=== PATIENT | male | born 1970 | race Asian ===

== ENCOUNTER 2016-08-11 09:37 | Emergency (ER) | payer OTHER ==
[2016-08-11] MEDS ORDERED: ACETAMINOPHEN 325 MG TABLET PO STA (10:48)
[2016-08-11] MEDS ORDERED: ACETAMINOPHEN 500 MG TABLET PO ONE (10:50)
== END 2016-08-11 12:27 | disposition home or self-care (01) ==
DX: J06.9 Acute upper respiratory infection, unspecified (principal); B97.89 Other viral agents as the cause of diseases classified elsewhere; L29.9 Pruritus, unspecified; F17.200 Nicotine dependence, unspecified, uncomplicated
CPT/HCPCS: 87275; 87276; 99283; A9270

== ENCOUNTER 2023-01-28 15:45 | Emergency (ER) | payer OTHER ==
--- NOTE | 2023-01-28 16:09 | ED Physician Documentation ---
PD HPI UPPER EXT INJURY - Stated complaint Stated Complaint: R WRIST PX - Chief complaint Chief Complaint: Ext Problem - History obtained from History obtained from: Patient - Additonal information Additional information: He had a fall on December 30 and states he broke his right wrist. He was seen at [facility] and splinted and referred to orthopedics. He cannot work with the splint on and there were some troubles with the orthopedic referral so he remove the splint and has not been seen again. When queried as to the purpose of today's visit, mostly he wants a smaller splint so he can work with it. PD PAST MEDICAL HISTORY - Past Medical History Cardiovascular: None Respiratory: None Endocrine/Autoimmune: None - Past Surgical History Past Surgical History: No - Present Medications Home Medications: Ambulatory Orders Medication Instructions Recorded Confirmed Atorvastatin [Lipitor] 20 mg PO DAILY 01/31/22 01/31/22 Cholecalciferol [Vitamin D3] 1 tab PO DAILY 01/31/22 01/31/22 Meloxicam [Mobic] 7.5 mg PO BID PRN #20 tablet 01/31/22 S[place]ord-3/Dha/Epa/Dpa/Fish Oil 1 cap PO DAILY 01/31/22 01/31/22 [Safford-3 2100 Softgel] Meloxicam [Mobic] 7.5 mg PO BID PRN #20 tablet 01/28/23 - Allergies Allergies/Adverse Reactions: Allergies Allergy/AdvReac Type Severity Reaction Status Date / Time No Known Drug Allergies Allergy Verified 01/28/23 15:57 - Social History Does the pt smoke?: Yes Smoking Status: Current every day smoker Does the pt have substance abuse?: No PD ED PE NORMAL - Vitals Vital signs reviewed: Yes - General General: Alert and oriented X 3, No acute distress - Extremities Extremities: Other (The right wrist is swollen but not deformed. He has limited range of motion but is not tender per se. Normal neurovascular function of the right hand.) - Neuro Neuro: Alert and oriented X 3, Normal speech Results - Vitals Vitals: Vital Signs - 24 hr 01/28/23 15:52 Temperature 36.7 C Heart Rate 78 Respiratory 97 H Rate Blood Pressure 153/90 H O2 Saturation 95 Oxygen O2 Source Room air Procedures - Splint (location) - Minor RUE Splint applied by: Physician Type of splint: Fiberglass, Short arm, Volar cock up Other: Patient tolerated well, No complications, Neurovascular intact PD Medical Decision Making - ED course ED course: 52-year-old gentleman who broke his right wrist about a month ago and here requesting different splints. An x-ray was done and this is clearly a surgical fracture. I discussed the case by phone with our orthopedic physician, Dr. Disla who reviewed the images and feels that given the time course and the fact that its been a month this will be a very complicated surgery and needs to go to a hand specialist. I tried to call the [facility] to expedite a referral for him. They were already closed for the day and had no one integration project manager. Advised him to just go there tomorrow to seek a referral to a hand surgeon. Departure - Departure Disposition: 01 Home, Self Care Clinical Impression: Wrist fracture, right Qualifiers: Encounter type: initial encounter Fracture type: closed Qualified Code(s): S62.101A - Fracture of unspecified carpal bone, right wrist, initial encounter for closed fracture Condition: Good Record reviewed to determine appropriate education?: Yes Instructions: ED Fx Colles Wrist Redu Requ Prescriptions: Meloxicam [Mobic] 7.5 mg PO BID PRN #20 tablet PRN Reason: Pain Comments: As discussed, the wrist fracture is quite bad and will likely need a surgery, because of the timeframe, the injury already being a-month-old, you will likely need to go to a hand specialist to have the surgery done and it will be a more complicated surgery than usual. I would recommend you go to the [facility] tomorrow and be persistent about seeking a referral, as frankly, surgery should already have been several weeks ago. Keep the splint on and dry until then. Please note I did place a smaller splint than would be usual per your request.
--- NOTE | 2023-01-28 16:55 | XRAY Report ---
PROCEDURE: Wrist 3 View RT INDICATIONS: F/U fracture 1 MO TECHNIQUE: 3 views of the wrist were acquired. COMPARISON: None. FINDINGS: Bones: Subacute appearing, displaced, comminuted, intra-articular fracture of the distal right radiu s. Soft tissues: No suspicious soft tissue calcifications or masses. IMPRESSION: Displaced, comminuted, intra-articular distal right radius fracture. Reviewed by: Silvia Gruber MD, PhD on 01/28/2023 4:53 PM PDT Approved by: Silvia Gruber MD, PhD on 01/28/2023 4:53 PM PDT Station ID: [id number]
[2023-01-28 17:05] VITALS: BP 140/88
== END 2023-01-28 17:00 | disposition home or self-care (01) ==
LOC: ED 15:45
DX: S52.571A Other intraarticular fracture of lower end of right radius, initial encounter for closed fracture (principal); F17.200 Nicotine dependence, unspecified, uncomplicated
CPT/HCPCS: 29125; 99283; 99284

== ENCOUNTER 2023-12-15 16:28 | Emergency (ER) | payer OTHER ==
--- NOTE | 2023-12-15 19:40 | ED Physician Documentation ---
History of Present Illness - Stated complaint Stated Complaint: R FOOT WOUND - Chief complaint Chief Complaint: Ext Problem - History obtained from History obtained from: Patient - Additonal information Additional information: HPI from patient. Patient complains of right lower leg swelling, erythema, tenderness. Symptoms started few days ago. Symptoms initially were surrounding an area where he [place] stained an abrasion approximate 1 month ago which has yet to fully heal. Denies fever. Pain is worse with palpation. Review of Systems Constitutional: denies: Fever, Chills, Sweats Skin: reports: Rash, Abrasion (s) Musculoskeletal: reports: Extremity pain, Extremity swelling PD PAST MEDICAL HISTORY - Past Medical History Past Medical History: Yes Cardiovascular: Hypertension Respiratory: None Neuro: None Endocrine/Autoimmune: None GI: None : None HEENT: None Psych: None Musculoskeletal: None Derm: None - Past Surgical History Past Surgical History: Yes Ortho: Other - Present Medications Home Medications: Ambulatory Orders Medication Instructions Recorded Confirmed Cholecalciferol [Vitamin D3] 1 tab PO DAILY 01/31/22 01/31/22 [place]ort-3/Dha/Epa/Dpa/Fish Oil 1 cap PO DAILY 01/31/22 01/31/22 [V[place]ervoort-3 2100 Softgel] Doxycycline [Vibramycin] 100 mg PO BID #14 tablet 12/15/23 - Allergies Allergies/Adverse Reactions: Allergies Allergy/AdvReac Type Severity Reaction Status Date / Time No Known Drug Allergies Allergy Verified 12/15/23 16:45 - Social History Does the pt smoke?: Yes Smoking Status: Current every day smoker Does the pt drink ETOH?: No Does the pt have substance abuse?: No - Immunizations Immunizations are current?: No - POLST Patient has POLST: No PD ED PE NORMAL - Vitals Vital signs reviewed: Yes - General General: Alert and oriented X 3, No acute distress, Well developed/nourished PD ED PE EXPANDED - Extremities JORGE LE visual: 1 - rash (confluent raised erythema with sharp margins, hot to touch. no fluctuance), swelling, tenderness Results - Vitals Vitals: Vital Signs - 24 hr 12/15/23 12/15/23 16:37 20:07 Temperature 36.7 C Heart Rate 76 87 Respiratory 17 16 Rate Blood Pressure 145/106 H 141/88 H O2 Saturation 100 99 Oxygen O2 Source Room air PD Medical Decision Making - ED course Complexity details: considered differential, d/w patient ED course: H&P are consistent with right lower extremity cellulitis. He is given doxycycline in the emergency department and provided with a 1-week prescription for same. Return precautions reviewed. Departure - Departure Disposition: Home, Self Care Clinical Impression: Cellulitis Condition: Good Instructions: ED Infec Skin Cellulitis Follow-Up: [facility] [Provider Group] Prescriptions: Doxycycline [Vibramycin] 100 mg PO BID #14 tablet Comments: The skin surrounding your right leg abrasion is infected (cellulitis). You were given the first dose of doxycycline (antibiotic) in the emergency department, and I have electronically submitted a prescription for 1-week course of this antibiotic to the [facility] pharmacy in [place]. Discharge Date/Time: 12/15/23 20:10
[2023-12-15] MEDS: DOXYCYCLINE 100 MG TABLET PO STA (20:07)
[2023-12-15] MEDS: BACITRACIN ZINC OINT 1 PACKET TOP STA (20:07)
[2023-12-15 20:16] VITALS: BP 141/88; O2SAT 99
== END 2023-12-15 20:10 | disposition home or self-care (01) ==
LOC: ED 16:28
DX: S80.811A Abrasion, right lower leg, initial encounter (principal); L03.115 Cellulitis of right lower limb; X58.XXXA Exposure to other specified factors, initial encounter; F17.200 Nicotine dependence, unspecified, uncomplicated
CPT/HCPCS: 99283; A9270